=== PATIENT | female | born 1965 | race Caucasian/White ===

== ENCOUNTER 2016-12-04 06:39 | Day surgery (SDC) | payer OTHER ==
[2016-12-01 18:05] LABS: ALBUMIN 3.5 G/DL (3.5-5.0); ALKALINE PHOSPHATASE 97 U/L (45-117); BUN (BLOOD UREA NITROGEN) 9 MG/DL (6-23); CHLORIDE, SERUM 105 MMOL/L (96-112); CO2 (CARBON DIOXIDE) 28 MMOL/L (24-34); CREATININE 0.75 MG/DL (0.55-1.02); GFR AFRICAN AMERICAN 106 ML/MIN (>=60); GFR NON AFRICAN AMERICAN 92 ML/MIN (>=60); GLOBULIN 3.4 G/DL (2.5-4.1); GLUCOSE, SERUM 84 MG/DL (60-99); SGOT(AST) 18 U/L (5-40); SGPT(ALT) 33 U/L (5-65); SODIUM, SERUM 138 MMOL/L (135-148); TOTAL BILIRUBIN 0.2 MG/DL (0-1.2); TOTAL PROTEIN 6.9 G/DL (6.0-8.5)
[2016-12-01 18:07] LABS: HEMATOCRIT 39.8 % (36.0-48.0); HEMOGLOBIN 13.3 g/dL (12.0-16.0)
[2016-12-01 18:10] LABS: CALCIUM, SERUM 8.7 MG/DL (8.5-10.4); POTASSIUM, SERUM 3.5 MMOL/L (3.5-5.3)
--- NOTE | ~2016-12-04 | OP ---
Record Of [address] [place]. [address] NAME: NEL BROCK : 63 STATUS : REG [facility] PAT#: [id number] AGE: 51 ADM/REG DATE : 12/04/16 MR#: [id number] REPORT SERV DATE: 12/04/16 DICTATED BY: JD PRO DATE: 12/04/16 REPORT STATUS : Draft TRANSCRIBED BY: GRISELDA DATE: 12/04/16 DATE OF PROCEDURE: 12/04/2016 PREOPERATIVE DIAGNOSES: 1. Chronic cholecystitis with gallbladder ejection fraction of 13%. 2. Reducible umbilical hernia. 3. Hypertension. 4. Hyperlipidemia. 5. Hypothyroidism. 6. Benign paroxysmal vertigo. POSTOPERATIVE DIAGNOSES: 1. Chronic cholecystitis with gallbladder ejection fraction of 13%. 2. Reducible umbilical hernia. 3. Hypertension. 4. Hyperlipidemia. 5. Hypothyroidism. 6. Benign paroxysmal vertigo. PROCEDURE: 1. Laparoscopic cholecystectomy. 2. Primary repair of umbilical hernia without mesh (reducible). ANESTHESIA: General. SHOE REPAIRER APPRENTICE: Boogie. COMPLICATIONS: None. DRAINS: None. ESTIMATED BLOOD LOSS: Less than 10 mL. FINDINGS: 1. The patient was noted to have a thickened gallbladder wall, with adhesions of the omentum, and duodenum to the gallbladder, with an enlarged cystic lymph node consistent with chronic cholecystitis. 2. The patient was noted to have a small reducible umbilical hernia that was repaired primarily with sutures. OPERATIVE TECHNIQUE: The patient was brought to the operating room and placed on the table in supine position. She had preoperative IV antibiotics. She had sequential hose in place. She voided prior to procedure. She underwent general endotracheal anesthesia and was prepped and draped in sterile fashion. A time-out was completed. Local anesthesia was instilled to the periumbilical skin. A 15 blade knife was used to make an incision through the umbilicus over the hernia. The incision was carried down to the hernia sac, it was then Record Of [address] [place]. [address] NAME: NEL BROCK : 63 STATUS : REG [facility] PAT#: [id number] AGE: 51 ADM/REG DATE : 12/04/16 MR#: [id number] REPORT SERV DATE: 12/04/16 DICTATED BY: JD PRO DATE: 12/04/16 REPORT STATUS : Draft TRANSCRIBED BY: MODL DATE: 12/04/16 circumferentially dissected using electrocautery, and then divided along with the hernia sac at the peritoneum and discarded. The finger was then inserted through the defect with a small layer of remaining posterior peritoneum through which the Veress needle was inserted with the skin and fascia elevated. A water drop test was safely performed. A 15 mm pneumoperitoneum was obtained. An 11 mm trocar was inserted through the defect into the abdomen. The laparoscope was then inserted. There was no evidence of Veress or trocar injury. The patient was then placed in reverse Trendelenburg and rolled to the left. An 11 mm subxiphoid and two 5 mm right upper quadrant trocars were placed under direct visualization. The gallbladder fundus was grasped and elevated over the liver edge. There were adhesions of the omentum to the gallbladder body and these were taken down using blunt dissection with a [place] dissector, as the infundibulum and gallbladder midbody were retracted laterally. The dissection continued down to the level of the cystic duct and gallbladder junction. The dissection began laterally and then continued circumferentially using blunt dissection with a [place] dissector until the cystic duct was seen for several centimeters in 360-degree fashion. Dissection more medial revealed the cystic artery. There were anterior and posterior branches on the gallbladder wall and these were individually dissected and isolated, and seen circumferentially. At this point, two clips were placed proximally and distally on the cystic duct and it was divided between the clips without encroachment of common bile duct. Two clips were then placed on the cystic artery branches and they were divided on the gallbladder wall with electrocautery. There was no gross encroachment of the common bile duct. There was no evidence of any bleeding or biliary spillage. The gallbladder was then removed from the hepatic fossa using electrocautery hook and extracted through the umbilicus with a grasper. The laparoscope and trocar were reinserted. Examination of hepatic fossa was noted to be hemostatic. The clips were noted to be intact without encroachment of the common bile duct. There was no evidence of any other visual abnormalities and therefore all the instruments and trocars were removed under direct visualization as the pneumoperitoneum was aspirated. The umbilical hernia was then reapproximated using a running 0 Vicryl suture without tension. The skin edges were reapproximated using interrupted subcuticular Monocryl sutures. Dermabond was applied to the skin. The patient was extubated and taken to the recovery room in stable condition. All sponge needle counts were reported correct. ELMER/GRISELDA Jd Pro M.D. / [id number] CC: Ibis Queen MD
[~2016-12-04 06:39] MED LIST: ESTRADIOL2 MG PO; LEXAPRO10 PO; MEDROXYPR AC5 MG PO; NEUR300 PO; NORV10 PO; SYN075 PO; VENTOLIN HFA INH
== END 2016-12-04 13:01 | disposition home or self-care (01) ==
LOC: SDC 06:39
PROVIDERS: Surgery
PROC: 0FT44ZZ Resection of Gallbladder, Percutaneous Endoscopic Approach (ICD-10-PCS; 2016-12-04)
PROC: 0FT44ZZ Resection of Gallbladder, Percutaneous Endoscopic Approach (ICD-10-PCS; principal; 2016-12-04 07:45)
PROC: 0WUF0JZ Supplement Abdominal Wall with Synthetic Substitute, Open Approach (ICD-10-PCS; 2016-12-04 07:45)
DX: K42.9 Umbilical hernia without obstruction or gangrene (principal); K81.1 Chronic cholecystitis; I10 Essential (primary) hypertension; E78.5 Hyperlipidemia, unspecified; E03.9 Hypothyroidism, unspecified; F17.210 Nicotine dependence, cigarettes, uncomplicated; Z88.5 Allergy status to narcotic agent; Z98.51 Tubal ligation status; Z98.890 Other specified postprocedural states
CPT/HCPCS: 80053; 84703; 85014; 85018; 87641; 88304; 93005; J0690; J1885; J2250; J2405; J2710; J3010